=== PATIENT | female | born 1990 | race Caucasian/White ===

== ENCOUNTER 2016-11-13 20:38 | Emergency (ER) | payer MEDICAID ==
[2016-11-13 20:51] VITALS: BP 114/79
[2016-11-13] MEDS ORDERED: oxyCODONE/Acetamin 5/325 MG* TAB PO ONE ×2 (22:10→23:26)
--- NOTE | 2016-11-13 22:58 | ED ---
Lower Extremity - HPI Summary HPI Summary: 26 female presents with complaints of left ankle and foot pain that began after tripping and twisting her ankle when getting out of a tractor trailer yesterday 11/12/16. Patient states the pain has been increasingly worse even after taking medications. Took Ibuprofen 800mg ~ 2 hours ago. Tried naproxen and tylenol also without relief. Has had limited ROM and unable to bear weight. Has been using crutches and brace and elevating. Patient had a previous fracture back in June of same ankle. Admits to swelling, denies bruising. Denies hitting her head and no LOC. Denies any other injuries or complaints at this time. States her toes feel tingly on the left side. Denies numbness. - History of Current Complaint Chief Complaint: EDExtremityLower Stated Complaint: LT ANKLE INJURY Time Seen by Provider: 11/13/16 21:54 Hx Obtained From: Patient Mechanism Of Injury: Twisted Onset of Pain: Immediate Onset/Duration: Days - 1 Severity Initially: Moderate Severity Currently: Moderate Pain Intensity: 4 Pain Scale Used: 0-10 Numeric Timing: Constant Location: Is Discrete @ - left ankle and anterior left foot Character Of Pain: Sharp, Aching Associated Signs And Symptoms: Positive: Swelling Aggravating Factor(s): Standing, Ambulation, Movement, Weight Bearing Alleviating Factor(s): Rest Able to Bear Weight: No - due to pain - Allergies/Home Medications Allergies/Adverse Reactions: Allergies Allergy/AdvReac Type Severity Reaction Status Date / Time Clindamycin Allergy Vomiting Verified 11/13/16 20:52 Hydrocodone Allergy Itching Verified 11/13/16 20:53 Ketorolac Tromethamine Allergy Unknown Verified 11/13/16 20:55 [From Toradol] Reaction Details Meloxicam Allergy Unknown Verified 11/13/16 20:53 Reaction Details Metoclopramide [From Reglan] Allergy Unknown Verified 11/13/16 20:52 Reaction Details Prochlorperazine Allergy Unknown Verified 11/13/16 20:52 [From Compazine] Reaction Details Tramadol Allergy Unknown Verified 11/13/16 20:54 Reaction Details PMH/Surg Hx/FS Hx/Imm Hx Endocrine/Hematology History: Denies: Hx Diabetes Cardiovascular History: Denies: Hx Hypertension Respiratory History: Denies: Hx Asthma Musculoskeletal History: Reports: Hx of Fracture(s) - left ankle per patient Neurological History: Reports: Hx Migraine Psychiatric History: Reports: Hx Post Traumatic Stress Disorder, Hx Bipolar Disorder - Surgical History Surgery Procedure, Year, and Place: none - Immunization History Immunizations Up to Date: Yes Infectious Disease History: No Infectious Disease History: Denies: Traveled Outside the [place] in Last 30 Days - Family History Known Family History: Positive: None - Social History Alcohol Use: None Substance Use Type: Reports: None Smoking Status (MU): Former Smoker Review of Systems Constitutional: Negative Respiratory: Negative Gastrointestinal: Negative Positive: Arthralgia, Myalgia, Decreased ROM, Edema - left ankle Skin: Negative Neurological: Negative All Other Systems Reviewed And Are Negative: Yes Physical Exam Triage Information Reviewed: Yes Vital Signs On Initial Exam: Initial Vitals Temp Pulse Resp BP Pulse Ox 98.0 F 105 16 114/79 98 11/13/16 20:45 11/13/16 20:45 11/13/16 20:45 11/13/16 20:45 11/13/16 20:45 Vital Signs Reviewed: Yes Appearance: Positive: Well-Appearing, Well-Nourished, Pain Distress - moderate Skin: Positive: Warm, Skin Color Reflects Adequate Perfusion, Dry, Other - no crepitus or step off noted. no ecchymosis noted. mild edema noted at lateral left ankle when compared to right. Negative: Numb, Cyanosis @, Erythema @ Head/Face: Positive: Normal Head/Face Inspection Eyes: Positive: Normal, Conjunctiva Clear ENT: Positive: Hearing grossly normal Neck: Positive: Supple, Nontender Respiratory/Lung Sounds: Positive: Clear to Auscultation, Breath Sounds Present. Negative: Rales, Rhonchi, Wheezes Cardiovascular: Positive: Pulses are Symmetrical in both Upper and Lower Extremities - 2+ pedal b/l. Negative: Murmur, Rub Musculoskeletal: Positive: Limited @ - left ankle with any ROM due to pain, Pain @ - left ankle, more on lateral side, and on anterior foot on palpation, Edema Left - minimal on lateral ankle. Negative: Interruption @, Edema Right Neurological: Positive: Normal, Sensory/Motor Intact - sensation intact, Alert, Oriented to Person Place, Time, CN Intact II-III, Reflexes Intact, NV Bundle Intact Distally, Unable to Assess Gait - using crutches, due to pain, patient preference Psychiatric: Positive: Affect/Mood Appropriate AVPU Assessment: Alert Diagnostics - Vital Signs Vital Signs Temp Pulse Resp BP Pulse Ox 11/13/16 22:20 98.0 F 105 16 114/79 98 11/13/16 20:45 98.0 F 105 16 114/79 98 - Laboratory Lab Statement: Any lab studies that have been ordered have been reviewed, and results considered in the medical decision making process. - Radiology left foot Xray Interpretation: No Acute Changes Radiology Interpretation Completed By: ED Physician - Dr Fairbanks left ankle Xray Interpretation: No Acute Changes Radiology Interpretation Completed By: ED Physician - Dr Fairbanks Re-Evaluation - Re-Evaluation First Eval Re-Evaluation Time: 23:20 Change: Improved - had some relief after percocet Lower Extremity Course/Dx - Course Course Of Treatment: given pain management, last dose of iburprofen was 800mg ~ 2 hours prior to arrival. X-rays obtained and negative. Continue RICE and NSAIDs. Follow up with PCP. Aware of worsening signs and symptoms. - Diagnoses Differential Diagnosis/HQI/PQRI: Positive: Contusion, Dislocation, Fracture ( Closed), Sprain, Strain Provider Diagnoses: Left ankle sprain Discharge - Discharge Plan Condition: Stable Disposition: HOME Patient Education Materials: Ankle Sprain (ED) Additional Instructions: Continue icing, resting, elevation and using crutches/brace for the next week. Continue taking ibuprofen or naproxen for pain and inflammation, with food, for the next 3-5 days. Ankle sprains are sometimes worse than breaks and take longer to heal, refrain from physical activity until symptoms have completely resolved and take it easy. If symptoms persist or do not improve within the next week please seek medical attention and possibly make an appointment with orthopedics. Follow up with PCP.
--- NOTE | 2016-11-14 07:51 | RAD ---
HISTORY: Left ankle injury, pain COMPARISONS: None VIEWS: 3, Frontal, lateral, and oblique views of the left ankle FINDINGS: BONE DENSITY: Normal. BONES: There is no displaced fracture. JOINTS: There is no arthropathy. ALIGNMENT: There is no dislocation. SOFT TISSUES: Unremarkable. OTHER FINDINGS: None. IMPRESSION: NO ACUTE OSSEOUS INJURY. IF SYMPTOMS PERSIST, RECOMMEND REPEAT IMAGING.
--- NOTE | 2016-11-14 07:53 | RAD ---
HISTORY: Injury, pain, left foot COMPARISONS: None VIEWS: 2, Frontal and lateral views of the left foot FINDINGS: BONE DENSITY: Normal. BONES: There is no displaced fracture. JOINTS: There is no arthropathy. ALIGNMENT: There is no dislocation. SOFT TISSUES: Unremarkable. OTHER FINDINGS: None. IMPRESSION: NO ACUTE OSSEOUS INJURY. IF SYMPTOMS PERSIST, RECOMMEND REPEAT IMAGING.
== END 2016-11-14 00:53 | disposition home or self-care (01) ==
LOC: ED 20:38
DX: S93.402A Sprain of unspecified ligament of left ankle, initial encounter (principal); X58.XXXA Exposure to other specified factors, initial encounter; Y93.9 Activity, unspecified; Y92.9 Unspecified place or not applicable; Z87.891 Personal history of nicotine dependence
CPT/HCPCS: 99282; A9270-GY

== ENCOUNTER 2016-12-08 21:46 | Emergency (ER) | payer MEDICAID, OTHER ==
[2016-12-08] MEDS ORDERED: oxyCODONE/Acetamin 5/325 MG* TAB PO ONE (22:55)
[2016-12-08 23:49] LABS: Hematocrit 41 % (35-47); Hemoglobin 13.3 g/dl (12.0-16.0); Mean Corpuscular HGB Conc 33 g/dl (31-36); Mean Corpuscular Hemoglobin 30 pg (27-31); Mean Corpuscular Volume 91 fL (80-97); Mean Platelet Volume 8 um3 (7.4-10.4); Red Blood Count 4.47 10^6/ul (4.0-5.4); Red Cell Distribution Width 16 % (10.5-15); White Blood Count 11.4 10^3/ul (3.5-10.8)
[2016-12-08 23:57] LABS: Urine Bilirubin Negative (Negative); Urine Glucose Negative (Negative); Urine Nitrite Negative (Negative)
[2016-12-09 00:22] LABS: ALT 13 U/L (7-52); AST 13 U/L (13-39); Albumin 4.3 g/dL (3.2-5.2); Alkaline Phosphatase 90 U/L (34-104); Anion Gap 6 mmol/L (2-11); BUN/Creatinine Ratio 8.3 (8-20); Blood Urea Nitrogen 5 mg/dL (6-24); C Reactive Protein 4.77 mg/L (< 5.00); CO2 Carbon Dioxide 28 mmol/L (22-32); Calcium 9.4 mg/dL (8.6-10.3); Chloride 101 mmol/L (101-111); EGFR African American 153.1 (>60); Globulin 3.2 g/dL (2-4); Glucose 86 mg/dL (70-100); Lipase 20 U/L (11.0-82.0); Potassium 3.7 mmol/L (3.5-5.0); Sodium 135 mmol/L (133-145); Total Protein 7.5 g/dL (6.4-8.9)
[2016-12-09] MEDS ORDERED: Iohexol 300* (CONTRAST) 10 ML SDV IV ONE (00:27)
[2016-12-09 01:34] VITALS: BP 105/65
[2016-12-09] MEDS ORDERED: Ondansetron INJ* 2 MG/ML VIAL IV ONE (02:00)
[2016-12-09] MEDS ORDERED: Morphine INJ* 4 MG/ML 1 ML SYRINGE IV ONE (02:00)
[2016-12-09] MEDS ORDERED: oxyCODONE/Acetamin 5/325 MG* TAB PO ONE ×2 (02:41→03:04)
--- NOTE | 2016-12-09 02:55 | ED ---
Rahul Quintana Soohyun, scribed for Watson Ward MD on 12/09/16 at 0229 . Progress - Progress Note Progress Note: Signed out at shift change from Dr. Mireles with CT Ab/P result pending. Pt has been stable during ED course, and stable for discharge. Plan of care involving discharge and outpatient f/u is discussed with pt, and she is agreeable. Dx: Abd pain. - Results/Orders Results/Orders: CT Ab/P -- 2.0 cm involuting corpus luteum right ovary. Hysterectomy. L5 spondylosis. Course/Dx - Diagnoses Provider Diagnoses: Abdominal pain The documentation as recorded by the Rahul terry Soohyun accurately reflects the service I personally performed and the decisions made by , Watson Ward MD.
[2016-12-09] MEDS ORDERED: oxyCODONE/Acetamin 5/325 MG* TAB ONE ×2 (03:07)
--- NOTE | 2016-12-09 07:41 | RAD ---
HISTORY: Hysterectomy, left oophorectomy COMPARISONS: CT dated December 09, 2016 TECHNIQUE: Multiple transverse and longitudinal ultrasound images were obtained of the pelvis using grayscale, color Doppler, and spectral Doppler imaging using the transabdominal transducer. FINDINGS: UTERUS: The patient is status post hysterectomy. ENDOMETRIUM: The patient is status post hysterectomy. CUL-DE-SAC: There is a small amount of free fluid adjacent to the right ovary. RIGHT OVARY: The right ovary measures 3.5 x 2.6 x 2 cm. As noted above, there is a small amount of free fluid adjacent to the right ovary. Normal arterial and venous waveforms are identifiable within the ovary on spectral Doppler imaging. LEFT OVARY: Status post left oophorectomy. BLADDER: The bladder is not well visualized. IMPRESSION: 1. STATUS POST HYSTERECTOMY AND LEFT OOPHORECTOMY. 2. SMALL AMOUNT OF FREE FLUID ADJACENT TO THE RIGHT OVARY. 3. NO SONOGRAPHIC FEATURES OF TORSION. PLEASE NOTE THAT PARTIAL OR INTERMITTENT TORSION MAY BE SONOGRAPHICALLY NORMAL.
--- NOTE | 2016-12-09 07:54 | RAD ---
INDICATION: Right lower quadrant pain COMPARISON: None TECHNIQUE: Axial source images were obtained from the hemidiaphragms to the symphysis pubis following administration of oral and intravenous contrast. 96 mL Omnipaque 300 was utilized. Coronal and sagittal reconstructed images were acquired. Lung bases: The lung bases are clear. Liver: The liver is normal in size. There are no masses. There is no ductal dilatation. Gallbladder: There are no calcified gallstones. There is no evidence of wall thickening or pericholecystic fluid. Spleen: The spleen is normal in size. There are no masses. Pancreas: There is no focal pancreatic mass or ductal dilatation. Adrenal glands: There is no evidence of adrenal mass. Kidneys: The kidneys are normal in size and position. There are prompt nephrograms and there is prompt excretion bilaterally. There are no renal parenchymal masses. There is no evidence of nephrolithiasis. Adenopathy: There is no evidence of adenopathy by size criteria. Fluid collections: There are no free or localized fluid collections. Vessels:There are no significant atherosclerotic changes involving the aorta. There is no focal aneurysm. The iliac vessels are normal in caliber. The IVC appears normal. GI tract: There are no acute CT bowel findings. There is no obstruction. The stomach and small bowel appear normal. The lower GI tract is normal. The cecum, ileocecal valve, and terminal ileum appear normal. The appendix is visualized and appear normal. Pelvic organs: There is hysterectomy. There is no adnexal mass. There is a probable involuting right ovarian cyst. Bladder: There are no bladder masses. Abdominal and pelvic soft tissues: The extraperitoneal abdominal and pelvic soft tissues appear normal.. Osseous structures: There are no acute osseous findings. There is a chronic L5 spondylolysis Other: None IMPRESSION: NO ACUTE CT FINDINGS. NO MASS OR INFLAMMATORY CHANGES. NORMAL APPENDIX. PROBABLE SMALL INVOLUTING RIGHT OVARIAN CYST. HYSTERECTOMY.
--- NOTE | 2016-12-25 15:32 | ED ---
Vanessa Quintana Edward, scribed for Josh Mireles MD on 12/08/16 at 2251 . Abdominal Pain/Female - HPI Summary HPI Summary: 26 y/o female presents to the ED c/o severe, sudden onset ABD pain and pain in her ovaries for 3 days. ABD pain is rated 10/10 at triage in severity. The pain is aggravated when she lies down. Pt c/o N/V today. Associated sx: diarrhea for 3 days, chills and dry mouth. Denies fevers, sweats, dysuria, hematuria. SHx L ovary removed. PMHx kidney stones, endometriosis, anxiety and pseudoseizures. - History of Current Complaint Chief Complaint: EDAbdPain Stated Complaint: ABD PAIN/V/D Time Seen by Provider: 12/08/16 22:35 Hx Obtained From: Patient Onset/Duration: Sudden Onset, Lasting Days - 3, Still Present Timing: Constant Severity Currently: Severe Pain Intensity: 10 Pain Scale Used: 0-10 Numeric Location: Discrete At: RLQ Associated Signs and Symptoms: Positive: Nausea, Vomiting, Diarrhea, Other: - Chills, dry mouth. Negative: Urinary Symptoms Allergies/Adverse Reactions: Allergies Allergy/AdvReac Type Severity Reaction Status Date / Time Clindamycin Allergy Vomiting Verified 11/13/16 20:52 Hydrocodone Allergy Itching Verified 11/13/16 20:53 Ketorolac Tromethamine Allergy Unknown Verified 11/13/16 20:55 [From Toradol] Reaction Details Meloxicam Allergy Unknown Verified 11/13/16 20:53 Reaction Details Metoclopramide [From Reglan] Allergy Unknown Verified 11/13/16 20:52 Reaction Details Prochlorperazine Allergy Unknown Verified 11/13/16 20:52 [From Compazine] Reaction Details Tramadol Allergy Unknown Verified 11/13/16 20:54 Reaction Details PMH/Surg Hx/FS Hx/Imm Hx Previously Healthy: No Endocrine/Hematology History: Denies: Hx Diabetes Cardiovascular History: Denies: Hx Hypertension Respiratory History: Denies: Hx Asthma Neurological History: Reports: Hx Migraine Psychiatric History: Reports: Hx Post Traumatic Stress Disorder, Hx Bipolar Disorder - Surgical History Surgery Procedure, Year, and Place: none Infectious Disease History: Yes Infectious Disease History: Denies: Traveled Outside the [place] in Last 30 Days - Family History Known Family History: Positive: Hypertension, Diabetes, Other - [place] - Social History Alcohol Use: None Substance Use Type: Reports: Marijuana Smoking Status (MU): Heavy Every Day Tobacco Smoker Review of Systems Negative: Fever, Chills, Skin Diaphoresis Negative: Erythema ENT: Other - Dry mouth Negative: Sore Throat Negative: Chest Pain Negative: Shortness Of Breath, Cough Positive: Abdominal Pain, Vomiting, Diarrhea, Nausea Positive: pain - In ovaries. Negative: dysuria, hematuria Negative: Myalgia, Edema Negative: Rash Neurological: Other - No dizziness All Other Systems Reviewed And Are Negative: Yes Physical Exam - Summary Physical Exam Summary: Constitutional: Well-developed, Well-nourished, Alert. (-) Distressed Skin: Warm, Dry HENT: Normocephalic; Atraumatic Eyes: Conjunctiva normal Neck: Musculoskeletal ROM normal neck. (-) JVD, (-) Stridor, (-) Tracheal deviation Cardio: Rhythm regular, rate normal, Heart sounds normal; Intact distal pulses; The pedal pulses are 2+ and symmetric. Radial pulses are 2+ and symmetric. (-) Murmur Pulmonary/Chest wall: Effort normal. (-) Respiratory distress, (-) Wheezes, (-) Rales Abd: Soft, (-) Distension, (-) Guarding, (-) Rebound. R CVA tenderness. R adnexal tenderness. RLQ tenderness. Musculoskeletal: (-) Edema Lymph: (-) Cervical adenopathy Neuro: Alert, Oriented x3 Psych: Mood and affect Normal Triage Information Reviewed: Yes Vital Signs On Initial Exam: Initial Vitals Temp Pulse Resp BP Pulse Ox 97.4 F 85 18 125/99 99 12/08/16 21:49 12/08/16 21:49 12/08/16 21:49 12/08/16 21:49 12/08/16 21:49 Vital Signs Reviewed: Yes - [place] Coma Scale Coma Scale Total: 15 Diagnostics - Vital Signs Vital Signs Temp Pulse Resp BP Pulse Ox 12/08/16 22:43 85 100 12/08/16 22:42 108/85 12/08/16 22:39 98.3 F 80 18 108/85 75 12/08/16 21:49 97.4 F 85 18 125/99 99 - Laboratory Lab Results: Lab Results 08/07/17 08/07/17 08/07/17 Range/Units 23:35 23:35 23:35 WBC 11.4 H (3.5-10.8) 10^3/ul RBC 4.47 (4.0-5.4) 10^6/ul Hgb 13.3 (12.0-16.0) g/dl Hct 41 (35-47) % MCV 91 (80-97) fL MCH 30 (27-31) pg MCHC 33 (31-36) g/dl RDW 16 H (10.5-15) % Plt Count 218 (150-450) 10^3/ul MPV 8 (7.4-10.4) um3 Neut % (Auto) 54.3 (38-83) % Lymph % (Auto) 37.0 (25-47) % Atkinson % (Auto) 6.5 (1-9) % Eos % (Auto) 1.6 (0-6) % Baso % (Auto) 0.6 (0-2) % Absolute Neuts (auto) 6.2 (1.5-7.7) 10^3/ul Absolute Lymphs (auto) 4.2 (1.0-4.8) 10^3/ul Absolute Monos (auto) 0.7 (0-0.8) 10^3/ul Absolute Eos (auto) 0.2 (0-0.6) 10^3/ul Absolute Basos (auto) 0.1 (0-0.2) 10^3/ul Absolute Nucleated RBC 0.01 10^3/ul Nucleated RBC % 0.1 Sodium 135 (133-145) mmol/L Potassium 3.7 (3.5-5.0) mmol/L Chloride 101 (101-111) mmol/L Carbon Dioxide 28 (22-32) mmol/L Anion Gap 6 (2-11) mmol/L BUN 5 L (6-24) mg/dL Creatinine 0.60 (0.51-0.95) mg/dL Est GFR ( Amer) 153.1 (>60) Est GFR (Non-Af Amer) 119.0 (>60) BUN/Creatinine Ratio 8.3 (8-20) Glucose 86 (70-100) mg/dL Lactic Acid (0.5-2.0) mmol/L Calcium 9.4 (8.6-10.3) mg/dL Total Bilirubin 0.20 (0.2-1.0) mg/dL AST 13 (13-39) U/L ALT 13 (7-52) U/L Alkaline Phosphatase 90 (34-104) U/L C-Reactive Protein 4.77 (< 5.00) mg/L Total Protein 7.5 (6.4-8.9) g/dL Albumin 4.3 (3.2-5.2) g/dL Globulin 3.2 (2-4) g/dL Albumin/Globulin Ratio 1.3 (1-3) Lipase 20 (11.0-82.0) U/L Beta HCG, Quant < 0.60 mIU/mL Urine Color Straw Urine Appearance Clear Urine pH 7.0 (5-9) Ur Specific [place] 1.003 L (1.010-1.030) Urine Protein Negative (Negative) Urine Ketones Negative (Negative) Urine Blood Negative (Negative) Urine Nitrate Negative (Negative) Urine Bilirubin Negative (Negative) Urine Urobilinogen Negative (Negative) Ur Leukocyte Esterase Negative (Negative) Urine Glucose Negative (Negative) 12/08/16 Range/Units 23:35 WBC (3.5-10.8) 10^3/ul RBC (4.0-5.4) 10^6/ul Hgb (12.0-16.0) g/dl Hct (35-47) % MCV (80-97) fL MCH (27-31) pg MCHC (31-36) g/dl RDW (10.5-15) % Plt Count (150-450) 10^3/ul MPV (7.4-10.4) um3 Neut % (Auto) (38-83) % Lymph % (Auto) (25-47) % Atkinson % (Auto) (1-9) % Eos % (Auto) (0-6) % Baso % (Auto) (0-2) % Absolute Neuts (auto) (1.5-7.7) 10^3/ul Absolute Lymphs (auto) (1.0-4.8) 10^3/ul Absolute Monos (auto) (0-0.8) 10^3/ul Absolute Eos (auto) (0-0.6) 10^3/ul Absolute Basos (auto) (0-0.2) 10^3/ul Absolute Nucleated RBC 10^3/ul Nucleated RBC % Sodium (133-145) mmol/L Potassium (3.5-5.0) mmol/L Chloride (101-111) mmol/L Carbon Dioxide (22-32) mmol/L Anion Gap (2-11) mmol/L BUN (6-24) mg/dL Creatinine (0.51-0.95) mg/dL Est GFR ( Amer) (>60) Est GFR (Non-Af Amer) (>60) BUN/Creatinine Ratio (8-20) Glucose (70-100) mg/dL Lactic Acid 1.2 (0.5-2.0) mmol/L Calcium (8.6-10.3) mg/dL Total Bilirubin (0.2-1.0) mg/dL AST (13-39) U/L ALT (7-52) U/L Alkaline Phosphatase (34-104) U/L C-Reactive Protein (< 5.00) mg/L Total Protein (6.4-8.9) g/dL Albumin (3.2-5.2) g/dL Globulin (2-4) g/dL Albumin/Globulin Ratio (1-3) Lipase (11.0-82.0) U/L Beta HCG, Quant mIU/mL Urine Color Urine Appearance Urine pH (5-9) Ur Specific [place] (1.010-1.030) Urine Protein (Negative) Urine Ketones (Negative) Urine Blood (Negative) Urine Nitrate (Negative) Urine Bilirubin (Negative) Urine Urobilinogen (Negative) Ur Leukocyte Esterase (Negative) Urine Glucose (Negative) Result Diagrams: 12/08/16 23:35 12/08/16 23:35 Lab Statement: Any lab studies that have been ordered have been reviewed, and results considered in the medical decision making process. - Ultrasound No standard instances Ultrasound Interpretation: No Acute Changes - PELVIS/TRANSVAG - HYSTERECTOMY. L OVARY NOT SEEN, CONSISTENT WITH HISTORY OF OOPHORECTOMY. NO RIGHT OVARIAN TORSION. COLOR FLOW WITH APPROPRIATE ARTERIAL WAVEFORMS. SMALL PHYSIOLOGIC FREE FLUID R ADNEXA. UNREMARKABLE VISUALIZED PORTION OF BLADDER. Ultrasound Interpretation Completed By: Radiologist Abdominal Pain Fem Course/Dx - Course Course Of Treatment: 26 y/o female presents to the ED c/o severe, sudden onset ABD pain and pain in her ovaries for 3 days. ABD pain is rated 10/10 at triage in severity. The pain is aggravated when she lies down. Pt c/o N/V today. Associated sx: diarrhea for 3 days, chills and dry mouth. Denies fevers, sweats , dysuria, hematuria. SHx L ovary removed. PMHx kidney stones, endometriosis, anxiety and pseudoseizures. PELVIS/TRANSVAG - HYSTERECTOMY. L OVARY NOT SEEN, CONSISTENT WITH HISTORY OF OOPHORECTOMY. NO RIGHT OVARIAN TORSION. COLOR FLOW WITH APPROPRIATE ARTERIAL WAVEFORMS. SMALL PHYSIOLOGIC FREE FLUID R ADNEXA. UNREMARKABLE VISUALIZED PORTION OF BLADDER. - Diagnoses Provider Diagnoses: Abdominal pain Discharge - Discharge Plan Condition: Stable Disposition: HOME Patient Education Materials: Abdominal Pain (ED) Referrals: [facility] [place] PH[facility]IAN REFERRAL [Outside] - 2 Days The documentation as recorded by the Vanessa terry Edward accurately reflects the service I personally performed and the decisions made by , Josh Mireles MD.
== END 2016-12-09 03:11 | disposition home or self-care (01) ==
LOC: ED 21:46
DX: R10.31 Right lower quadrant pain (principal)
CPT/HCPCS: 36415; 74177; 76856; 80053; 81003; 83605; 83690; 84702; 85025; 86140; 96374; 96375; 99283; A9270-GY; J2270; J2405; Q9967

== ENCOUNTER 2017-02-26 19:28 | Emergency (ER) | payer OTHER ==
[2017-02-26] MEDS ORDERED: NS 0.9% 1000 ML* 1,000 ML IV ONE (23:03)
[2017-02-26] MEDS ORDERED: HYDROmorphone INJ* 2 MG/ML CARPUJECT SYRINGE IV SLOW PU ONE (23:04)
[2017-02-26 23:47] LABS: Hematocrit 38 % (35-47); Hemoglobin 12.7 g/dl (12.0-16.0); Mean Corpuscular HGB Conc 34 g/dl (31-36); Mean Corpuscular Hemoglobin 30 pg (27-31); Mean Corpuscular Volume 90 fL (80-97); Mean Platelet Volume 8 um3 (7.4-10.4); Red Blood Count 4.18 10^6/ul (4.0-5.4); Red Cell Distribution Width 14 % (10.5-15); White Blood Count 8.8 10^3/ul (3.5-10.8)
[2017-02-26 23:48] LABS: Urine Bilirubin Negative (Negative); Urine Glucose Negative (Negative); Urine Nitrite Negative (Negative)
[2017-02-27 00:04] LABS: ALT 15 U/L (7-52); AST 13 U/L (13-39); Albumin 3.9 g/dL (3.2-5.2); Alkaline Phosphatase 70 U/L (34-104); Amylase 25 U/L (29-103); Anion Gap 7 mmol/L (2-11); BUN/Creatinine Ratio 9.8 (8-20); Blood Urea Nitrogen 5 mg/dL (6-24); CO2 Carbon Dioxide 26 mmol/L (22-32); Calcium 9.1 mg/dL (8.6-10.3); Chloride 101 mmol/L (101-111); EGFR African American 184.7 (>60); EGFR Non-African American 143.6 (>60); Globulin 3.1 g/dL (2-4); Glucose 87 mg/dL (70-100); Lipase 16 U/L (11.0-82.0); Magnesium 1.8 mg/dL (1.9-2.7); Potassium 3.7 mmol/L (3.5-5.0); Sodium 134 mmol/L (133-145)
[2017-02-27] MEDS ORDERED: Haloperidol INJ IV/IM* 5 MG/ML AMP IM ONE (00:10)
[2017-02-27] MEDS ORDERED: Iohexol 300* (CONTRAST) 10 ML SDV IV ONE (01:35)
[2017-02-27] MEDS: Ketorolac INJ* 30 MG/ML 1 ML VIAL IV PUSH ONE ×2 (01:41→02:03)
[2017-02-27] MEDS ORDERED: HYDROmorphone INJ* 2 MG/ML CARPUJECT SYRINGE IV SLOW PU ONE (02:24)
--- NOTE | 2017-02-27 02:30 | ED ---
Amelia Quintana Rebecca, scribed for Dong Heredia MD on 02/26/17 at 2204 . Abdominal Pain/Female - HPI Summary HPI Summary: Pt is a 26 y/o F who presents to ED c/o abdominal pain. Sx began this morning upon waking up. Pain is in the RUQ and at rest, the pain is 8-9/10 and with movement, the pain worsens to >10/10. Sx aggravated by movement and alleviated by rest. Additionally c/o nausea. Denies vomiting, rash and dysuria. No prior similar episodes of pain. PMHx endometriosis, ovarian cysts. PSHx 2 C-Sections and hysterectomy. - History of Current Complaint Chief Complaint: EDAbdPain Stated Complaint: RT SIDE ABD PAIN Hx Obtained From: Patient Onset/Duration: Still Present Severity Currently: Severe Pain Intensity: 9 Pain Scale Used: 0-10 Numeric Location: Discrete At: RUQ Radiates: No Aggravating Factor(s): Movement Alleviating Factor(s): Other: - Rest Associated Signs and Symptoms: Positive: Nausea. Negative: Urinary Symptoms, Vomiting Allergies/Adverse Reactions: Allergies Allergy/AdvReac Type Severity Reaction Status Date / Time Clindamycin Allergy Vomiting Verified 02/26/17 19:33 Hydrocodone Allergy Itching Verified 02/26/17 19:33 Ketorolac Tromethamine Allergy Unknown Verified 02/26/17 19:33 [From Toradol] Reaction Details Meloxicam Allergy Unknown Verified 02/26/17 19:33 Reaction Details Metoclopramide [From Reglan] Allergy Unknown Verified 02/26/17 19:33 Reaction Details Prochlorperazine Allergy Unknown Verified 02/26/17 19:33 [From Compazine] Reaction Details Tramadol Allergy Unknown Verified 02/26/17 19:33 Reaction Details PMH/Surg Hx/FS Hx/Imm Hx Endocrine/Hematology History: Denies: Hx Diabetes Cardiovascular History: Denies: Hx Hypertension Respiratory History: Denies: Hx Asthma History: Reports: Other Problems/Disorders - Ovarian cysts, endometriosis Denies: Hx Renal Disease Neurological History: Reports: Hx Migraine Psychiatric History: Reports: Hx Post Traumatic Stress Disorder, Hx Bipolar Disorder - Surgical History Surgery Procedure, Year, and Place: none - Immunization History Date of Tetanus Vaccine: 10/18 Date of Influenza Vaccine: 2016 Infectious Disease History: No Infectious Disease History: Denies: Traveled Outside the [place] in Last 30 Days - Family History Known Family History: Positive: Hypertension, Diabetes, Other - [place] - Social History Alcohol Use: Rare Substance Use Type: Reports: Marijuana Substance Use Comment - Amount & Last Used: 02/26/17 this morning Smoking Status (MU): Heavy Every Day Tobacco Smoker Review of Systems Positive: Abdominal Pain, Nausea. Negative: Vomiting Negative: dysuria Negative: Rash All Other Systems Reviewed And Are Negative: Yes Physical Exam - Summary Physical Exam Summary: Appearance: Well-appearing, Well-nourished Skin: Warm Eyes: Normal ENT: Normal Neck: Supple, nontender Respiratory: Clear to auscultation Cardiovascular: Normal Abdomen: Soft, tenderness in the RUQ and RLQ, no rebound, minimal voluntary guarding Bowel: Present Musculoskeletal: Normal, Strength/ROM Intact Neurological: Normal, A&Ox3 Psychiatric: Normal Triage Information Reviewed: Yes Vital Signs On Initial Exam: Initial Vitals Temp Pulse Resp BP Pulse Ox 97.3 F 105 16 117/83 99 02/26/17 19:30 02/26/17 19:30 02/26/17 19:30 02/26/17 19:30 02/26/17 19:30 Vital Signs Reviewed: Yes - Ghada Coma Scale Coma Scale Total: 15 Diagnostics - Vital Signs Vital Signs Temp Pulse Resp BP Pulse Ox 02/26/17 19:30 97.3 F 105 16 117/83 99 - Laboratory Lab Results: Lab Results 02/26/17 02/26/17 02/26/17 Range/Units 23:34 23:34 23:34 WBC 8.8 (3.5-10.8) 10^3/ul RBC 4.18 (4.0-5.4) 10^6/ul Hgb 12.7 (12.0-16.0) g/dl Hct 38 (35-47) % MCV 90 (80-97) fL MCH 30 (27-31) pg MCHC 34 (31-36) g/dl RDW 14 (10.5-15) % Plt Count 209 (150-450) 10^3/ul MPV 8 (7.4-10.4) um3 Neut % (Auto) 52.6 (38-83) % Lymph % (Auto) 39.1 (25-47) % [place] % (Auto) 6.1 (1-9) % Eos % (Auto) 1.5 (0-6) % Baso % (Auto) 0.7 (0-2) % Absolute Neuts (auto) 4.7 (1.5-7.7) 10^3/ul Absolute Lymphs (auto) 3.5 (1.0-4.8) 10^3/ul Absolute Monos (auto) 0.5 (0-0.8) 10^3/ul Absolute Eos (auto) 0.1 (0-0.6) 10^3/ul Absolute Basos (auto) 0.1 (0-0.2) 10^3/ul Absolute Nucleated RBC 0 10^3/ul Nucleated RBC % 0 INR (Anticoag Therapy) 0.94 (0.89-1.11) APTT 29.3 (26.0-36.3) seconds Sodium 134 (133-145) mmol/L Potassium 3.7 (3.5-5.0) mmol/L Chloride 101 (101-111) mmol/L Carbon Dioxide 26 (22-32) mmol/L Anion Gap 7 (2-11) mmol/L BUN 5 L (6-24) mg/dL Creatinine 0.51 (0.51-0.95) mg/dL Est GFR ( Amer) 184.7 (>60) Est GFR (Non-Af Amer) 143.6 (>60) BUN/Creatinine Ratio 9.8 (8-20) Glucose 87 (70-100) mg/dL Calcium 9.1 (8.6-10.3) mg/dL Magnesium 1.8 L (1.9-2.7) mg/dL Total Bilirubin 0.30 (0.2-1.0) mg/dL AST 13 (13-39) U/L ALT 15 (7-52) U/L Alkaline Phosphatase 70 (34-104) U/L Total Protein 7.0 (6.4-8.9) g/dL Albumin 3.9 (3.2-5.2) g/dL Globulin 3.1 (2-4) g/dL Albumin/Globulin Ratio 1.3 (1-3) Amylase 25 L (29-103) U/L Lipase 16 (11.0-82.0) U/L Beta HCG, Quant < 0.60 mIU/mL Urine Color Urine Appearance Urine pH (5-9) Ur Specific [place] (1.010-1.030) Urine Protein (Negative) Urine Ketones (Negative) Urine Blood (Negative) Urine Nitrate (Negative) Urine Bilirubin (Negative) Urine Urobilinogen (Negative) Ur Leukocyte Esterase (Negative) Urine Glucose (Negative) 02/26/17 Range/Units 23:34 WBC (3.5-10.8) 10^3/ul RBC (4.0-5.4) 10^6/ul Hgb (12.0-16.0) g/dl Hct (35-47) % MCV (80-97) fL MCH (27-31) pg MCHC (31-36) g/dl RDW (10.5-15) % Plt Count (150-450) 10^3/ul MPV (7.4-10.4) um3 Neut % (Auto) (38-83) % Lymph % (Auto) (25-47) % [place] % (Auto) (1-9) % Eos % (Auto) (0-6) % Baso % (Auto) (0-2) % Absolute Neuts (auto) (1.5-7.7) 10^3/ul Absolute Lymphs (auto) (1.0-4.8) 10^3/ul Absolute Monos (auto) (0-0.8) 10^3/ul Absolute Eos (auto) (0-0.6) 10^3/ul Absolute Basos (auto) (0-0.2) 10^3/ul Absolute Nucleated RBC 10^3/ul Nucleated RBC % INR (Anticoag Therapy) (0.89-1.11) APTT (26.0-36.3) seconds Sodium (133-145) mmol/L Potassium (3.5-5.0) mmol/L Chloride (101-111) mmol/L Carbon Dioxide (22-32) mmol/L Anion Gap (2-11) mmol/L BUN (6-24) mg/dL Creatinine (0.51-0.95) mg/dL Est GFR ( Amer) (>60) Est GFR (Non-Af Amer) (>60) BUN/Creatinine Ratio (8-20) Glucose (70-100) mg/dL Calcium (8.6-10.3) mg/dL Magnesium (1.9-2.7) mg/dL Total Bilirubin (0.2-1.0) mg/dL AST (13-39) U/L ALT (7-52) U/L Alkaline Phosphatase (34-104) U/L Total Protein (6.4-8.9) g/dL Albumin (3.2-5.2) g/dL Globulin (2-4) g/dL Albumin/Globulin Ratio (1-3) Amylase (29-103) U/L Lipase (11.0-82.0) U/L Beta HCG, Quant mIU/mL Urine Color Yellow Urine Appearance Clear Urine pH 7.0 (5-9) Ur Specific [place] 1.008 L (1.010-1.030) Urine Protein Negative (Negative) Urine Ketones Negative (Negative) Urine Blood Negative (Negative) Urine Nitrate Negative (Negative) Urine Bilirubin Negative (Negative) Urine Urobilinogen Negative (Negative) Ur Leukocyte Esterase Negative (Negative) Urine Glucose Negative (Negative) Result Diagrams: 02/26/17 23:34 02/26/17 23:34 Lab Statement: Any lab studies that have been ordered have been reviewed, and results considered in the medical decision making process. - Ultrasound No standard instances Ultrasound Interpretation: No Acute Changes - Abdomen US: Normal exam. ED physician reviewed radiology report and agrees. Ultrasound Interpretation Completed By: Radiologist Re-Evaluation - Re-Evaluation First Eval Re-Evaluation Time: 02:22 Change: Improved Abdominal Pain Fem Course/Dx - Course Course Of Treatment: pt feels better after meds, does not want CT currently, pt asks for pain meds for home and additional iv pain medications. pt instructed to fu with GI physician and return to the ed for any worsenin or concerning sxs. agrees to and understands dc instructoins - Diagnoses Provider Diagnoses: Abdominal pain Discharge - Discharge Plan Condition: Good Disposition: HOME Prescriptions: oxyCODONE TAB* [Roxycodone TAB 5 mg*] 5 mg PO Q6H PRN #10 tab MDD 4 TABS PRN Reason: Pain - Moderate To Severe Patient Education Materials: Abdominal Pain (ED) Referrals: Bobo Jason JR PACKAGING MANAGER [Primary Care Provider] - Mt Freire MD [Medical Doctor] - Additional Instructions: PLEASE MAKE AN APPOINTMENT FIRST THING IN THE MORNING TO BE SEEN BY YOUR PRIMARY CARE DOCTOR AND GI DOCTOR WITHIN 1-2 WEEKS PLEASE RETURN TO THE EMERGENCY ROOM IF YOU HAVE ANY WORSENING OR CONCERNING SYMPTOMS The documentation as recorded by the Amelia terry Rebecca accurately reflects the service I personally performed and the decisions made by me, Dong Heredia MD.
[2017-02-27 02:55] VITALS: BP 112/73
--- NOTE | 2017-02-27 07:51 | RAD ---
HISTORY: Right upper quadrant pain. COMPARISONS: CT abdomen pelvis dated December 09, 2016 TECHNIQUE: Multiple transverse and longitudinal ultrasound images were obtained of the right upper quadrant. FINDINGS: LIVER: The liver is normal in dimensions and echogenicity. Normal hepatic and portal venous blood flow is duplicated with color flow imaging. There is no gross intrahepatic biliary duct dilatation. GALLBLADDER AND EXTRAHEPATIC BILIARY DUCT: The gallbladder is normal in appearance without intraluminal stones or other soft tissue masses. There is no pericholecystic fluid or gallbladder wall thickening. The common bile duct measures a maximum diameter of 2 mm. PANCREAS: The portions of the pancreas not obscured by bowel gas are normal in appearance. RIGHT KIDNEY: The right kidney is normal in size, morphology and echogenicity. AORTA AND IVC: The visualized portions are normal in appearance and not pathologically dilated. IMPRESSION: Normal ultrasound of the right upper quadrant.
== END 2017-02-27 02:51 | disposition home or self-care (01) ==
LOC: ED 19:28
DX: R10.9 Unspecified abdominal pain (principal); F17.210 Nicotine dependence, cigarettes, uncomplicated; R11.0 Nausea
CPT/HCPCS: 36415; 76705; 80053; 81003; 82150; 83690; 83735; 84702; 85025; 85610; 85730; 96374; 96375; 99283; J1170; J1885

== ENCOUNTER 2017-04-15 21:57 | Emergency (ER) | payer OTHER ==
[2017-04-15 23:38] LABS: Hematocrit 40 % (35-47); Hemoglobin 13.2 g/dl (12.0-16.0); Mean Corpuscular HGB Conc 33 g/dl (31-36); Mean Corpuscular Hemoglobin 30 pg (27-31); Mean Corpuscular Volume 89 fL (80-97); Mean Platelet Volume 8 um3 (7.4-10.4); Red Blood Count 4.45 10^6/ul (4.0-5.4); Red Cell Distribution Width 14 % (10.5-15); White Blood Count 7.8 10^3/ul (3.5-10.8)
--- NOTE | 2017-04-15 23:42 | ED ---
Abdominal Pain/Female - HPI Summary HPI Summary: 26 female presents to ED with complaints of diffuse abdominal pain, nausea and vomiting. States symptoms began today. States he had a fever of 103 yesterday. First denied medication use and then stated she took ibuprofen and tylenol right before arrival. Denies any blood in vomit. Denies chest pain, difficulty breathing, diarrhea, constipation. States last normal bowel movement was today. Denies urinary symptoms. Has eating take out food. Recently treated for bronchitis with lorenzo gudino. No coughing or other complaints at this time. States she has been unable to eat or drink however has been drinking mountain dew since in ED. No other complaints. No PMHx. Nothing makes pain better or worse. It does not radiate. Described as sharp and cramping "Everywhere". No genitalia symptoms - History of Current Complaint Chief Complaint: EDAbdPain Stated Complaint: SHARP ABD PAIN Time Seen by Provider: 04/15/17 23:20 Hx Obtained From: Patient ?: No Onset/Duration: Sudden Onset, Lasting Hours Timing: Constant Severity Initially: Moderate Severity Currently: Moderate Pain Intensity: 10 Pain Scale Used: 0-10 Numeric Location: Diffuse Radiates: No Character: Sharp, Cramping Aggravating Factor(s): Food Alleviating Factor(s): Nothing Associated Signs and Symptoms: Positive: Nausea, Vomiting. Negative: Constipation, Blood in Stool, Urinary Symptoms, Diarrhea Allergies/Adverse Reactions: Allergies Allergy/AdvReac Type Severity Reaction Status Date / Time Clindamycin Allergy Vomiting Verified 02/26/17 19:33 Hydrocodone Allergy Itching Verified 02/26/17 19:33 Ketorolac Tromethamine Allergy Unknown Verified 02/26/17 19:33 [From Toradol] Reaction Details Meloxicam Allergy Unknown Verified 02/26/17 19:33 Reaction Details Metoclopramide [From Reglan] Allergy Unknown Verified 02/26/17 19:33 Reaction Details Prochlorperazine Allergy Unknown Verified 02/26/17 19:33 [From Compazine] Reaction Details Tramadol Allergy Unknown Verified 02/26/17 19:33 Reaction Details PMH/Surg Hx/FS Hx/Imm Hx Endocrine/Hematology History: Denies: Hx Diabetes Cardiovascular History: Denies: Hx Hypertension Respiratory History: Denies: Hx Asthma History: Reports: Other Problems/Disorders - Ovarian cysts, endometriosis Denies: Hx Renal Disease Neurological History: Reports: Hx Migraine Psychiatric History: Reports: Hx Post Traumatic Stress Disorder, Hx Bipolar Disorder - Surgical History Surgery Procedure, Year, and Place: c section. hysterectomy all except right ovary - Immunization History Date of Tetanus Vaccine: 10/18 Date of Influenza Vaccine: 2017 Immunizations Up to Date: Yes Infectious Disease History: No Infectious Disease History: Denies: Hx Clostridium Difficile, Traveled Outside the [place] in Last 30 Days - Family History Known Family History: Positive: None, Hypertension, Diabetes, Other - [place] - Social History Alcohol Use: Rare Substance Use Type: Reports: Marijuana Substance Use Comment - Amount & Last Used: 02/26/17 this morning Smoking Status (MU): Heavy Every Day Tobacco Smoker Review of Systems Constitutional: Negative Cardiovascular: Negative Respiratory: Negative Positive: Abdominal Pain, Vomiting, Nausea Genitourinary: Negative Skin: Negative All Other Systems Reviewed And Are Negative: Yes Physical Exam Triage Information Reviewed: Yes Vital Signs On Initial Exam: Initial Vitals Temp Pulse Resp BP Pulse Ox 98.7 F 90 16 118/81 96 04/15/17 22:08 04/15/17 22:08 04/15/17 22:08 04/15/17 22:08 04/15/17 22:08 Vital Signs Reviewed: Yes Appearance: Positive: Well-Appearing - drinking mountain dew upon entry, No Pain Distress, Well-Nourished Skin: Positive: Warm, Skin Color Reflects Adequate Perfusion, Dry. Negative: Cold, Cyanosis @, Pale, Erythema @ Head/Face: Positive: Normal Head/Face Inspection Eyes: Positive: Conjunctiva Clear ENT: Positive: Hearing grossly normal, Pharynx normal Neck: Positive: Supple, Nontender, No Lymphadenopathy Respiratory/Lung Sounds: Positive: Clear to Auscultation, Breath Sounds Present. Negative: Rales, Rhonchi, Wheezes Cardiovascular: Positive: Normal, RRR, Pulses are Symmetrical in both Upper and Lower Extremities. Negative: Murmur, Rub Abdomen Description: Positive: No Organomegaly, Soft, Other: - tenderness diffusely and random throughout abdomen, however not when auscultating.. Negative: Bruit, CVA Tenderness (R), CVA Tenderness (L), Distended, Guarding, McBurney's Point Tenderness, Peritoneal Signs Bowel Sounds: Positive: Present Pelvic Exam: Positive: external exam normal - per patient, deferred pelvic exam Musculoskeletal: Positive: Normal, Strength/ROM Intact Neurological: Positive: Normal, Sensory/Motor Intact, Alert, Oriented to Person Place, Time Diagnostics - Vital Signs Vital Signs Temp Pulse Resp BP Pulse Ox 04/15/17 22:08 98.7 F 90 16 118/81 96 - Laboratory Result Diagrams: 04/15/17 23:25 04/15/17 23:25 Lab Statement: Any lab studies that have been ordered have been reviewed, and results considered in the medical decision making process. - Radiology abdomen Xray Interpretation: No Acute Changes Radiology Interpretation Completed By: ED Physician - Dr Calvillo and myself Abdominal Pain Fem Course/Dx - Course Course Of Treatment: labs obtained and normal. urinalysis obtained and normal. given zofran and GI cocktail and then percocet. had relief. tolerated PO. no vomiting noted while in ED. abdomen xray obtained and negative. normal vitals and PE findings. Patient appears comfortable, eating and drinking prior to entering room. no other complaints. appears to be suffering from possible gastroenteritis. no other concerns at this time. follow up with pcp. continue zofran and tylenol/ibuprofen at home as needed. increase fluid intake. rest. recommended probiotics. aware of worsening signs and symptoms to watch out for. deferred pelvic exam. educated on etiolgies possibly causing her symptoms that could be diagnosed with pelvic exam although no STD concern and is currently asymptomatic. had hysterectomy therfore not reproductive related. Follow up with PCP. zofran, probiotics, fluids, tylenol/ibuprofen, rest. - Diagnoses Differential Diagnosis: Positive: Pelvic Inflammatory Disease, Urinary Tract Infection, Other - abdominal pain, gastroenteritis Provider Diagnoses: Abdominal pain, Gastroenteritis Discharge - Discharge Plan Condition: Stable Disposition: HOME Prescriptions: Ondansetron ODT TAB* [Zofran 4 MG Odt TAB*] 4 mg PO Q6H PRN #10 tab.odt PRN Reason: Nausea Patient Education Materials: Gastroenteritis (ED), Acute Nausea and Vomiting ( ED), Abdominal Pain (ED) Referrals: Non Staff,Doctor [Primary Care Provider] - Additional Instructions: Take ibuprofen/tylenol for pain. Increase fluid intake. Zofran for nausea as needed. Rest. Take probiotics or eat syriac yogurt. Any new or worsening symptoms please seek medical attention promptly, return to ED. Follow up with PCP.
[2017-04-15 23:52] LABS: ALT 14 U/L (7-52); AST 13 U/L (13-39); Albumin 3.9 g/dL (3.2-5.2); Alkaline Phosphatase 78 U/L (34-104); Anion Gap 8 mmol/L (2-11); BUN/Creatinine Ratio 8.7 (8-20); Blood Urea Nitrogen 6 mg/dL (6-24); C Reactive Protein 2.79 mg/L (< 5.00); CO2 Carbon Dioxide 26 mmol/L (22-32); Calcium 9.1 mg/dL (8.6-10.3); Chloride 105 mmol/L (101-111); EGFR African American 130.3 (>60); EGFR Non-African American 101.3 (>60); Globulin 2.9 g/dL (2-4); Glucose 99 mg/dL (70-100); Lipase 22 U/L (11.0-82.0); Potassium 3.9 mmol/L (3.5-5.0); Sodium 139 mmol/L (133-145); Total Protein 6.8 g/dL (6.4-8.9)
[2017-04-16] MEDS ORDERED: Acetaminophen TAB* 325 MG PO ONE (00:15)
[2017-04-16] MEDS ORDERED: Ondansetron ODT TAB* 4 MG PO ONE (00:16)
[2017-04-16] MEDS ORDERED: Al Hydrox/Mg Hydrox/Simet LIQ* 30 ML UDC PO ONE (00:31)
[2017-04-16] MEDS ORDERED: Lidocaine 2% VISCOUS* 15 ML UDC PO ONE (00:31)
[2017-04-16 00:33] LABS: Urine Bacteria Absent (Absent); Urine Bilirubin Negative (Negative); Urine Glucose Negative (Negative); Urine Nitrite Negative (Negative)
[2017-04-16] MEDS ORDERED: oxyCODONE/Acetamin 5/325 MG* TAB PO ONE ×2 (00:56→01:59)
[2017-04-16 01:41] VITALS: BP 110/75
[2017-04-16] MEDS ORDERED: oxyCODONE/Acetamin 5/325 MG* TAB ONE (02:04)
--- NOTE | 2017-04-16 08:02 | RAD ---
INDICATION: Diffuse abdominal pain. COMPARISON: There are no prior studies available for comparison. TECHNIQUE: Supine and upright views of the abdomen were obtained. FINDINGS: The small bowel and colon appear nondistended. No free intraperitoneal air is seen. No abnormal calcifications are seen. IMPRESSION: NO EVIDENCE FOR ACUTE FINDING.
== END 2017-04-16 02:00 | disposition home or self-care (01) ==
LOC: ED 21:57
DX: K52.9 Noninfective gastroenteritis and colitis, unspecified (principal); R10.84 Generalized abdominal pain; Z32.02 Encounter for pregnancy test, result negative; G43.909 Migraine, unspecified, not intractable, without status migrainosus; Z88.1 Allergy status to other antibiotic agents; Z88.5 Allergy status to narcotic agent; F12.90 Cannabis use, unspecified, uncomplicated; F17.210 Nicotine dependence, cigarettes, uncomplicated
CPT/HCPCS: 36415; 74020; 80053; 81003; 81015; 83690; 84702; 85025; 86140; 87086; 87502; 99283; A9270-GY

== ENCOUNTER 2017-05-19 15:48 | Emergency (ER) | payer OTHER ==
--- NOTE | 2017-05-19 19:17 | RAD ---
INDICATION: Right shoulder pain COMPARISON: None TECHNIQUE: 4 views of the right shoulder were obtained. FINDINGS: The adequately corticated bones are in normal alignment. Joint spaces appear maintained. No fracture, dislocation or focal bony abnormality is seen. IMPRESSION: Normal radiograph of the right shoulder. If the patient's symptoms persist, follow-up imaging is recommended.
--- NOTE | 2017-05-19 19:18 | RAD ---
INDICATION: Neck pain after lifting a heavy object COMPARISON: None. TECHNIQUE: 5 views of the cervical spine were obtained. FINDINGS: C1-C7 are visualized. There is straightening of the normal cervical lordosis. The facet joints and vertebral bodies are otherwise appropriately aligned. No prevertebral soft tissue swelling or fracture is seen. Disc spaces appear maintained. IMPRESSION: Nonspecific straightening of the normal cervical lordosis which can be seen in the setting of muscle spasm or simply be the consequence of positioning. If the patient's symptoms persist, follow-up imaging is recommended.
--- NOTE | 2017-05-19 21:32 | ED ---
Neck Pain - HPI Summary HPI Summary: 27F presents with neck pain and right shoulder pain since Thursday. She states she was helping her boyfriend lift changes at work and noticed the pain. She has been taking ibuprofen, Tylenol, a muscle relaxer without relief. She denies any numbness or tingling. She states pain is greatest over the right shoulder and starts to radiate down her right arm. She denies any previous injury to the area. She states pain is worst when tries to lift arm overhead. She does not have a primary. - History of Current Complaint Chief Complaint: EDExtremityUpper Stated Complaint: NECK AND BACK PAIN Time Seen by Provider: 05/19/17 21:09 Pain Intensity: 9 - Allergies/Home Medications Allergies/Adverse Reactions: Allergies Allergy/AdvReac Type Severity Reaction Status Date / Time Clindamycin Allergy Vomiting Verified 02/26/17 19:33 Hydrocodone Allergy Itching Verified 02/26/17 19:33 Ketorolac Tromethamine Allergy Unknown Verified 02/26/17 19:33 [From Toradol] Reaction Details Meloxicam Allergy Unknown Verified 02/26/17 19:33 Reaction Details Metoclopramide [From Reglan] Allergy Unknown Verified 02/26/17 19:33 Reaction Details Prochlorperazine Allergy Unknown Verified 02/26/17 19:33 [From Compazine] Reaction Details Tramadol Allergy Unknown Verified 02/26/17 19:33 Reaction Details PMH/Surg Hx/FS Hx/Imm Hx Endocrine/Hematology History: Denies: Hx Diabetes Cardiovascular History: Denies: Hx Hypertension Respiratory History: Denies: Hx Asthma History: Reports: Other Problems/Disorders - Ovarian cysts, endometriosis Denies: Hx Renal Disease Neurological History: Reports: Hx Migraine Psychiatric History: Reports: Hx Post Traumatic Stress Disorder, Hx Bipolar Disorder - Surgical History Surgery Procedure, Year, and Place: c section. hysterectomy all except right ovary - Immunization History Date of Tetanus Vaccine: 10/18 Date of Influenza Vaccine: 2016 Infectious Disease History: No Infectious Disease History: Denies: Hx Clostridium Difficile, Traveled Outside the [place] in Last 30 Days - Family History Known Family History: Positive: None, Hypertension, Diabetes, Other - [place] - Social History Alcohol Use: Rare Substance Use Type: Reports: Marijuana Substance Use Comment - Amount & Last Used: 02/26/17 this morning Smoking Status (MU): Heavy Every Day Tobacco Smoker Review of Systems Negative: Fever Negative: Chest Pain Negative: Shortness Of Breath Positive: Myalgia - neck and right shoulder pain All Other Systems Reviewed And Are Negative: Yes Physical Exam Triage Information Reviewed: Yes Vital Signs On Initial Exam: Initial Vitals Temp Pulse Resp BP Pulse Ox 97.8 F 63 18 121/82 97 05/19/17 15:50 05/19/17 15:50 05/19/17 15:50 05/19/17 15:50 05/19/17 15:50 Vital Signs Reviewed: Yes Appearance: Positive: Well-Appearing Skin: Positive: Warm, Dry Head/Face: Positive: Normal Head/Face Inspection Eyes: Positive: Normal, Conjunctiva Clear Respiratory/Lung Sounds: Positive: Clear to Auscultation, Breath Sounds Present Cardiovascular: Positive: Normal, RRR Musculoskeletal: Positive: Strength/ROM Intact - neck, Limited @ - right shoulder due to pain, Other - good pulses, capillary refill<2 secs, sensation grossly intact, tenderness over trapezius muscle, neg yearsons, neg carr Neurological: Positive: Reflexes Intact - biceps - Ghada Coma Scale Coma Scale Total: 15 Diagnostics - Vital Signs Vital Signs Temp Pulse Resp BP Pulse Ox 05/19/17 19:56 92 95 05/19/17 19:24 97.7 F 132/83 99 05/19/17 18:19 98.1 F 122/77 99 05/19/17 15:50 97.8 F 63 18 121/82 97 - Laboratory Lab Statement: Any lab studies that have been ordered have been reviewed, and results considered in the medical decision making process. - Radiology neck Xray Interpretation: No Acute Changes Radiology Interpretation Completed By: Radiologist right shoulder Xray Interpretation: No Acute Changes Radiology Interpretation Completed By: Radiologist Neck Course/Dx - Course Course Of Treatment: 27F presents with neck pain and right shoulder pain since Thursday. She states she was helping her boyfriend lift changes at work and noticed the pain. She has been taking ibuprofen, Tylenol, a muscle relaxer without relief. She denies any numbness or tingling. She states pain is greatest over the right shoulder and starts to radiate down her right arm. She denies any previous injury to the area. She states pain is worst when tries to lift arm overhead. She does not have a primary. on exam has tenderness over trapezius right side, neurovascular intact. will try different muscle relaxer, medrol, and lidocaine patch. patient understand and agrees with plan. - Diagnoses Differential Dx/HQI/PQRI: Positive: Cervical Fracture, Sprain, Strain Provider Diagnoses: Neck pain, Right shoulder pain Discharge - Discharge Plan Condition: Good Disposition: HOME Prescriptions: Lidocaine PATCH 5%* [Lidoderm 5% Patch*] 1 patch TRANSDERM DAILY #5 patch Methocarbamol [Robaxin-750 MG TAB] 750 mg PO TID #15 tab Methylprednisolone [Medrol Dosepak 4 MG*] 4 mg PO .SEE MERY INSTRUCTION #1 packet Patient Education Materials: Neck Pain (ED) Referrals: Non Staff,Doctor [Primary Care Provider] - Additional Instructions: Take muscle relaxers three times a day Follow directions for steriod Apply lidocaine patches to area for up to 12 hours in one 24 hour period Use ibuprofen or Tylenol for pain every 6 hours ice/heat area, move as much as possible Follow up with primary within 5 days Return to ED if develop any new or worsening symptoms
[2017-05-19] MEDS ORDERED: Dexamethasone TAB* 4 MG PO ONE (21:36)
[2017-05-19] MEDS ORDERED: Lidocaine PATCH 5%* 1 PATCH TRANSDERM ONE (21:36)
[2017-05-19] MEDS ORDERED: Methocarbamol TAB* 500 MG PO ONE (21:36)
[2017-05-19 21:53] VITALS: BP 132/74
== END 2017-05-19 21:52 | disposition home or self-care (01) ==
LOC: ED 15:48
DX: M54.2 Cervicalgia (principal); M25.511 Pain in right shoulder; F17.200 Nicotine dependence, unspecified, uncomplicated; Z88.3 Allergy status to other anti-infective agents; Z88.5 Allergy status to narcotic agent; Z88.8 Allergy status to other drugs, medicaments and biological substances
CPT/HCPCS: 72050; 99282; A9270-GY; J8540

== ENCOUNTER 2017-08-29 18:40 | Emergency (ER) | payer OTHER ==
[2017-08-29] MEDS ORDERED: oxyCODONE/Acetamin 5/325 MG* TAB PO ONE (20:45)
[2017-08-29 21:44] VITALS: BP 100/77
--- NOTE | 2017-08-30 03:21 | ED ---
Bettie Quintana Emily, scribed for Christiano Crawford MD on 08/29/17 at 2044 . Abdominal Pain/Female - HPI Summary HPI Summary: This patient is a 27 year old F presenting to [facility] with a chief complaint of RLQ pain that began 08/26/2017. The patient rates the pain 9/10 in severity. Symptoms aggravated by nothing. Symptoms alleviated by nothing. Pt reports being diagnosed with a fat containing umbilical hernia on 08/26/2017. Pt reports having her right ovary removed on 08/03/2017. - History of Current Complaint Chief Complaint: EDAbdPain Stated Complaint: ABD PAIN Time Seen by Provider: 08/29/17 20:29 Hx Obtained From: Patient Onset/Duration: Sudden Onset, Lasting Days, Still Present Timing: Constant Severity Initially: Severe Severity Currently: Severe Pain Intensity: 9 Pain Scale Used: 0-10 Numeric Location: Discrete At: RLQ Aggravating Factor(s): Nothing Alleviating Factor(s): Nothing Allergies/Adverse Reactions: Allergies Allergy/AdvReac Type Severity Reaction Status Date / Time clindamycin Allergy Unknown Verified 08/29/17 20:50 Reaction Details hydrocodone Allergy Unknown Verified 08/29/17 20:51 Reaction Details ketorolac [From Toradol] Allergy Unknown Verified 08/29/17 20:51 Reaction Details meloxicam Allergy Unknown Verified 08/29/17 20:52 Reaction Details metoclopramide [From Reglan] Allergy Unknown Verified 08/29/17 20:52 Reaction Details prochlorperazine Allergy Unknown Verified 08/29/17 20:52 [From Compazine] Reaction Details tramadol Allergy Unknown Verified 08/29/17 20:52 Reaction Details Home Medications: Home Medications Cariprazine HCl [Vraylar] 3 mg PO DAILY 08/29/17 [History Confirmed 08/29/17] Diazepam TAB(*) [Valium TAB(*)] 5 mg PO QID 08/29/17 [History Confirmed 08/29/17 ] traZODone TAB* [Desyrel TAB*] 200 mg PO BEDTIME 08/29/17 [History Confirmed ] PMH/Surg Hx/FS Hx/Imm Hx Previously Healthy: No Endocrine/Hematology History: Denies: Hx Diabetes Cardiovascular History: Denies: Hx Hypertension Respiratory History: Denies: Hx Asthma History: Reports: Other Problems/Disorders - Ovarian cysts, endometriosis Denies: Hx Renal Disease Neurological History: Reports: Hx Migraine Psychiatric History: Reports: Hx Post Traumatic Stress Disorder, Hx Bipolar Disorder - Surgical History Surgery Procedure, Year, and Place: c section. hysterectomy all except right ovary - Immunization History Date of Tetanus Vaccine: 10/18 Date of Influenza Vaccine: 2016 Infectious Disease History: Yes Infectious Disease History: Denies: Hx Clostridium Difficile, Traveled Outside the [place] in Last 30 Days - Family History Known Family History: Positive: Hypertension, Diabetes, Other - [place] - Social History Occupation: Unemployed Lives: With Family Alcohol Use: Rare Substance Use Type: Reports: Marijuana Substance Use Comment - Amount & Last Used: 02/26/17 this morning Smoking Status (MU): Heavy Every Day Tobacco Smoker Review of Systems Negative: Fever Positive: Abdominal Pain All Other Systems Reviewed And Are Negative: Yes Physical Exam - Summary Physical Exam Summary: Appearance: Well appearing, no pain distress Skin: warm, dry, reflects adequate perfusion Head/face: normal Eyes: EOMI, JOSE A ENT: normal Neck: supple, non-tender Respiratory: CTA, breath sounds present Cardiovascular: RRR, pulses symmetrical Abdomen: soft, Mild periumbilical pain without redness, swelling, warmth Bowel Sounds: present Musculoskeletal: normal, strength/ROM intact Neuro: normal, sensory motor intact, A&Ox3 Triage Information Reviewed: Yes Vital Signs On Initial Exam: Initial Vitals Temp Pulse Resp BP Pulse Ox 97.7 F 83 16 109/78 100 08/29/17 18:41 08/29/17 18:41 08/29/17 18:41 08/29/17 18:41 08/29/17 18:41 Vital Signs Reviewed: Yes Diagnostics - Vital Signs Vital Signs Temp Pulse Resp BP Pulse Ox 08/29/17 18:41 97.7 F 83 16 109/78 100 - Laboratory Lab Statement: Any lab studies that have been ordered have been reviewed, and results considered in the medical decision making process. Abdominal Pain Fem Course/Dx - Course Course Of Treatment: iSTOP search reveals multiple opiod prescriptions. Filled at 5 different addresses. Patient has subjective discomfort around the umbilicus without any palpable hernia. There is certainly no incarceration. She has a history of multiple opiate prescriptions and did have a CT scan and a separate hospital earlier this week. She visits many hospitals and gives multiple addresses as evidenced on Istop. She was treated for pain here, given abdominal binder and discharged to follow-up with the surgeon for her hernia. She is encouraged to get her images from [facility] to take to the surgeon. - Diagnoses Provider Diagnoses: Periumbilic abdominal tenderness, Umbilical hernia Discharge - Sign-Out/Discharge Documenting (check all that apply): Discharge/Admit/Transfer - Discharge - Discharge Plan Condition: Stable Disposition: HOME Patient Education Materials: Umbilical Hernia (ED) Referrals: Bobo Jason JR, NP [Nurse Practitioner] - Reg Rodriguez MD [Medical Doctor] - Additional Instructions: Call the surgeon for follow-up appointment. Ice, Tylenol for discomfort. Wear the binder that was provided to you as needed. Take a stool softener as you have been prescribed opiate medications in the recent past. This may cause some constipation and abdominal discomfort. Return with fever, vomiting, worse or other concerns. The documentation as recorded by the Bettie terry Emily accurately reflects the service I personally performed and the decisions made by me, Christiano Crawford MD.
== END 2017-08-29 21:44 | disposition home or self-care (01) ==
LOC: ED 18:40
DX: K42.9 Umbilical hernia without obstruction or gangrene (principal); R10.31 Right lower quadrant pain; F17.210 Nicotine dependence, cigarettes, uncomplicated
CPT/HCPCS: 99282; A9270-GY